=== PATIENT | male | born 1995 | race African-American/Black ===

== ENCOUNTER → 2018-02-21 | Outpatient (CLI) | payer OTHER ==
--- NOTE | 2018-02-21 10:34 | RADIOLOGY REPORT (SQ) ---
EXAM DESCRIPTION: U/S LTD DUPLEX ART/SUZIE FLOW; U/S RETROPERITON (RENAL/AORTA) COMPLETED DATE/TIME: 02/21/2018 10:13 am REASON FOR STUDY: HTN/DIAZ COMPARISON: None. TECHNIQUE: Realtime and static grayscale images acquired. Selected color Doppler, velocities and spe ctral images recorded. LIMITATIONS: Renal artery origins off the aorta were difficult to visualize. FINDINGS: RIGHT KIDNEY: RENAL ARTERY VELOCITIES: 64 cm/sec. Segmental artery velocity 63 cm/sec. RENAL VEIN: Color doppler flow present, patent. VELOCITY RATIO: 0.4. Normal waveforms. KIDNEY: 10 cm in length. No significant pathology. LEFT KIDNEY: RENAL ARTERY VELOCITIES: 85 cm/sec. Segmental artery velocity 63 cm/sec. RENAL VEIN: Color doppler flow present, patent. VELOCITY RATIO: 58. There is a blunted systolic upstroke and turbulent flow, renal artery stenosis co uld be present on the left. Recommend follow-up CT angio of the abdominal aorta and renal arteries. KIDNEY: 9 cm in length. No significant pathology. BLADDER: Not visualized, decompressed OTHER: No other significant finding. IMPRESSION: Normal-appearing right kidney and right renal artery spectral waveforms. Small left kidney with blunted systolic upstroke on spectral waveforms. Question left-sided renal ar mj stenosis. CTA or MRA recommended for follow-up. COMMENT: NORMAL RENAL ARTERY/AORTA VELOCITY RATIO IS LESS THAN OR EQUAL TO 3.5. TECHNICAL DOCUMENTATION: JOB ID: [id number] [employer]- All Rights Reserved Reading location - IP/workstation name: [email or web address]
--- NOTE | 2018-02-21 10:34 | RADIOLOGY REPORT (SQ) ---
EXAM DESCRIPTION: U/S LTD DUPLEX ART/SUZIE FLOW; U/S RETROPERITON (RENAL/AORTA) COMPLETED DATE/TIME: 02/21/2018 10:13 am REASON FOR STUDY: HTN/DIAZ COMPARISON: None. TECHNIQUE: Realtime and static grayscale images acquired. Selected color Doppler, velocities and spe ctral images recorded. LIMITATIONS: Renal artery origins off the aorta were difficult to visualize. FINDINGS: RIGHT KIDNEY: RENAL ARTERY VELOCITIES: 64 cm/sec. Segmental artery velocity 63 cm/sec. RENAL VEIN: Color doppler flow present, patent. VELOCITY RATIO: 0.4. Normal waveforms. KIDNEY: 10 cm in length. No significant pathology. LEFT KIDNEY: RENAL ARTERY VELOCITIES: 85 cm/sec. Segmental artery velocity 63 cm/sec. RENAL VEIN: Color doppler flow present, patent. VELOCITY RATIO: 58. There is a blunted systolic upstroke and turbulent flow, renal artery stenosis co uld be present on the left. Recommend follow-up CT angio of the abdominal aorta and renal arteries. KIDNEY: 9 cm in length. No significant pathology. BLADDER: Not visualized, decompressed OTHER: No other significant finding. IMPRESSION: Normal-appearing right kidney and right renal artery spectral waveforms. Small left kidney with blunted systolic upstroke on spectral waveforms. Question left-sided renal ar mj stenosis. CTA or MRA recommended for follow-up. COMMENT: NORMAL RENAL ARTERY/AORTA VELOCITY RATIO IS LESS THAN OR EQUAL TO 3.5. TECHNICAL DOCUMENTATION: JOB ID: [id number] [employer]- All Rights Reserved Reading location - IP/workstation name: [email or web address]
== END ==
LOC: RAD 09:34
PROVIDERS: ATTEND Psychiatry & Neurology Neurology
DX: I70.1 Atherosclerosis of renal artery (principal)
CPT/HCPCS: 76770; 93976